=== PATIENT | female | born 1995 | race Caucasian/White ===

== ENCOUNTER 2019-05-16 12:50 | Outpatient (CLI) | payer SELFPAY ==
[~2019-05-16] VITALS: Ht 157.5 cm; Wt 90.0 kg
--- NOTE | 2019-05-16 12:44 | NUR ---
ANGIE COOPER presented to unit via AMBULATION from ED, accompanied by S/0, with c/o LEAKING FLUID. ANGIE COOPER weighed, gowned, voided, and to bed. EFHM and TOCO applied, VS taken. ANGIE COOPER oriented to bed controls, call light, TV, heat, and A/C controls.
--- NOTE | 2019-05-16 12:55 | NUR ---
INITIAL ASSESSMENT COMPLETED PT REPORTS LEAKING FLUID SINCE YESTERDAY. PT NOTES SHE WENT TO [facility] YESTERDAY AND WAS TESTED BUT WAS NEGATIVE. PT REPORTS CONTINUING TO LEAK FLUID FLUID, PT ALSO REPORTS ABDOMINAL CRAMPING AND DECREASED MOVEMENT.
[2019-05-16 13:00] VITALS: BP 114/69
--- NOTE | 2019-05-16 13:25 | NUR ---
DR CAVAZOS AT BEDSIDE VISITING WITH PT/SO, NEW ORDERS RECEIVED TO DISCHARGE PT HOME.
--- NOTE | 2019-05-16 13:35 | NUR ---
ANGIE COOPER demonstrates understanding of discharge instructions and accurately returns instructions upon questioning. Copy of Post-Discharge Instructions given to . ANGIE COOPER is able to manage continuing needs after discharge. PT TO FOLLOW UP WITH DR CAVAZOS TOMORROW PREVIOUSLY SCHEDULED. LABOR PRECAUTIONS REVIEWED. Patients belongings returned to . Patient discharged from 3314-1 on 05/16/19 at 1335. ANGIE COOPER left floor via , accompanied by .
--- NOTE | 2019-05-17 09:02 | Physician Query-Final Dx ---
Clinic Account Progress/Dx Physician Query: Please give diagnosis Please give # weeks gestation Date of Service May 16, 2019 at 12:50 ANSLEY GRIMES May 17, 2019 09:02 POS
== END 2019-05-16 13:35 | disposition home or self-care (01) ==
LOC: LDRP 12:50 → WSo 12:50
PROVIDERS: ATTEND Obstetrics & Gynecology
DX: O42.913 Preterm premature rupture of membranes, unspecified as to length of time between rupture and onset of labor, third trimester (principal); Z3A.36 36 weeks gestation of pregnancy
CPT/HCPCS: 99213